=== PATIENT | male | born 2000 | race Hispanic/Latino ===

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

== ENCOUNTER 2021-01-09 04:37 | Emergency (ER) | payer SELFPAY ==
[2021-01-09 05:11] LABS: #Basophils 0.1 thou/uL (0.0-0.2); #Lymphocytes 1.1 thou/uL (1.20-3.40); #Monocytes 0.7 thou/uL (0.11-0.59); #Neutrophils 10.8 thou/uL (1.40-6.50); %Basophils 0.5 % (0.0-1.0); %Eosinophils 0.1 % (0.0-10.0); %Lymphocytes 8.8 % (28.0-48.0); %Monocytes 5.8 % (0.0-4.0); %Neutrophils 84.9 % (31.0-61.0); Hemoglobin 15.3 g/dL (14.0-18.0); Mean Corpuscular Hemoglobin 30.9 pg (25.0-35.0); Mean Corpuscular Volume 88.2 fL (78.0-98.0); Mean Platelet Volume 8.6 fL (7.4-10.4); Platelet Count 212 thou/uL (130-400); RBC Distribution Width 10.6 % (11.5-14.5); Red Blood Cell (RBC) Count 4.97 mill/uL (4.00-5.20); White Blood Cell (WBC) Count 12.7 thou/uL (4.8-10.8)
[2021-01-09 05:31] LABS: ALT (SGPT) 17 U/L (8-55); AST (SGOT) 19 U/L (5-34); Albumin 4.5 g/dL (3.5-5.0); Alkaline Phosphatase 91 U/L (50-130); Anion Gap 14 mmol/L (10-20); BUN (Urea Nitrogen) 11 mg/dL (8.9-20.6); Bilirubin, Total 0.4 mg/dL (0.2-1.2); Calc. Creatinine Clearance 0 mL/min (70-130); Calcium 9.5 mg/dL (7.8-10.44); Carbon Dioxide 27 mmol/L (22-29); Chloride 98 mmol/L (98-107); Globulin 3.3 g/dL (2.4-3.5); Glucose 122 mg/dL (70-105); Potassium 3.3 mmol/L (3.5-5.1); Protein, Total 7.8 g/dL (6.0-8.3); Sodium 136 mmol/L (136-145)
[2021-01-09] MEDS ORDERED: Ondansetron PF 4 MG/2 ML Vial ONE (05:36)
[2021-01-09] MEDS ORDERED: Morphine 4 MG/ML VIAL ONE (05:36)
[2021-01-09 05:39] LABS: Bilirubin Small (Negative); Blood, Urine Moderate (Negative); Clarity Clear (Clear); Glucose, Urine (Dipstick) Negative (Negative); Ketone, Urine 15 mg/dL (Negative); Leukocyte Negative (Negative); Nitrite Negative (Negative); Protein, Urine (Dipstick) 30 mg/dL (Neg-Trace); Urobilinogen 0.2 mg/dL (Less than 2)
[2021-01-09 05:40] LABS: Specific Gravity, Urine 1.024 (1.002-1.036)
[2021-01-09 05:48] LABS: Bacteria/HPF None Seen HPF (None Seen); Squamous Epithelial None Seen HPF (0-3)
== END 2021-01-09 08:08 | disposition home or self-care (01) ==
LOC: ERS 04:37
DX: R11.2 Nausea with vomiting, unspecified (principal); R10.30 Lower abdominal pain, unspecified; R10.814 Left lower quadrant abdominal tenderness; R19.7 Diarrhea, unspecified
CPT/HCPCS: 36415; 74176; 80053; 81003; 81015; 83690; 85025; 87086; 96374; 96375; J2270; J2405

== ENCOUNTER 2021-01-09 15:06 | Emergency (ER) | payer SELFPAY | END 2021-01-09 16:11 | disposition left against medical advice (07) | LOC: ERS 15:06 | DX: Z53.21 Procedure and treatment not carried out due to patient leaving prior to being seen by health care provider (principal) ==

== ENCOUNTER 2021-06-21 23:15 | Emergency (ER) | payer SELFPAY ==
[2021-06-21] MEDS ORDERED: hydrOXYzine 25 MG TAB ONE (23:59)
[2021-06-22] MEDS ORDERED: hydrOXYzine Pamoate 25 mg Capsule ONE (00:01)
== END 2021-06-22 00:04 | disposition home or self-care (01) ==
LOC: ERS 23:15
DX: J01.40 Acute pansinusitis, unspecified (principal); J00 Acute nasopharyngitis [common cold]
CPT/HCPCS: 99283; Q0177

== ENCOUNTER 2021-12-20 15:55 | Emergency (ER) | payer SELFPAY ==
[2021-12-20] MEDS ORDERED: Ibuprofen 200 MG TAB ONE (17:47)
[2021-12-20] MEDS ORDERED: Dexameth. Sod Phosp. 10 MG/ML (CHEMO USE ONLY) ONE (18:35)
== END 2021-12-20 18:39 | disposition home or self-care (01) ==
LOC: ERS 15:55
DX: G56.01 Carpal tunnel syndrome, right upper limb (principal)
CPT/HCPCS: 96372; J1100

== ENCOUNTER 2023-06-06 03:12 | Emergency (ER) | payer SELFPAY ==
[2023-06-06] MEDS ORDERED: Lidocaine 2% Viscous 100 ML BOTTLE FS SCH (04:15)
== END 2023-06-06 05:03 | disposition home or self-care (01) ==
LOC: ERS 03:12
DX: T16.9XXA Foreign body in ear, unspecified ear, initial encounter (principal)
CPT/HCPCS: 69200

== ENCOUNTER 2023-10-15 09:53 | Emergency (ER) | payer SELFPAY ==
[2023-10-15 12:25] LABS: Influenza A by NAA Not Detected (NotDetected); Influenza B by NAA Not Detected (NotDetected); SARS-CoV-2 NAA Rapid Test DETECTED (NotDetected)
== END 2023-10-15 11:45 | disposition home or self-care (01) ==
LOC: ERS 09:53
DX: U07.1 COVID-19 (principal); J00 Acute nasopharyngitis [common cold]
CPT/HCPCS: 87081; 87430; 93005